=== PATIENT | female | born 1975 | race African-American/Black ===

== ENCOUNTER 2017-09-30 08:22 | Emergency (ER) | payer OTHER, MEDICARE ==
[~2017-09-30] VITALS: Ht 170.2 cm; Wt 70.3 kg
[~2017-09-30 08:22] MED LIST: ACETAMINOPHEN325 M1 PO; ALPRAZOLAM 0.50.5 MG PO; AMITIZA 24 MCG24 MC1 PO; ASPIRIN325 PO; BENTYL; CRANBERRY500 M1 PO; CYMBALTA PO; DESYREL; ERYTHROMYCIN PO; FENTANYL PA50 MCG/HR TP; FUROSEMIDE 20 M20 MG PO; GLUCOPHAGE500 MG PO; HYDROXYCHLOROQ200 M1 PO; KEFLEX500 MG PO; KLOR-CON 1010 MEQ PO; LEVOTHYROXINE PO; METHOTREXATE 22.5 M1 PO; MULTIVITAMINS PO; NEURONTIN800 MG PO; NEXIUM40 MG PO; NORCO 5-325 TA1 EACH; OXYCONTIN PO; OXYCONTIN80 M1 PO; PERCOCET 5-3251 EACH PO; PHENERGAN; PHENERGAN 25 MG25 M1 PO; RESTORIL15 MG PO; SEROQUEL XR200 MG PO; SULFAZINE EC500 MG PO; TIZANIDINE HCL2 M1 PO; TRILEPTAL PO; VANCOMYCIN IVPB; VANCOMYCIN1.5 GM/150 IV
[2017-09-30 08:46] LABS: URINE BILIRUBIN NEGATIVE (Negative); URINE BLOOD NEGATIVE (Negative); URINE CLARITY CLEAR; URINE COLOR YELLOW; URINE GLUCOSE-RANDOM NEGATIVE (Negative); URINE KETONES NEGATIVE (Negative); URINE LEUKOCYTES-REFLEX NEGATIVE (Negative); URINE PROTEIN NEGATIVE (Negative); URINE UROBILINOGEN 0.2 E.U./dl (0.2-1.0)
[2017-09-30 08:51] LABS: URINE NITRITE-REFLEX POSITIVE (Negative)
[2017-09-30 08:54] LABS: CASTS None Seen /LPF (None Seen); CRYSTALS None Seen /LPF (None Seen); SQUAMOUS >10 Many /LPF (0-3)
[2017-09-30 08:55] LABS: BACTERIA-REFLEX 1-9 Few /HPF (None Seen); URINE RBC None Seen /HPF (0-2); URINE WBC-REFLEX 6-15 Few /HPF (0-5)
[2017-09-30] MEDS ORDERED: KEFLEX500 M1 PO (09:52)
[2017-09-30] MEDS ORDERED: PHENAZOPYRIDIN200 M2 PO ×2 (09:52→09:59)
[2017-09-30] MEDS ORDERED: TETRACYCLINE H500 MG PO (09:58)
[2017-09-30 10:47] VITALS: BP 145/82
== END 2017-09-30 10:48 | disposition home or self-care (01) ==
LOC: M.ERS 08:22
PROVIDERS: Emergency Medicine Emergency Medical Services
DX: N39.0 Urinary tract infection, site not specified (principal); E03.9 Hypothyroidism, unspecified; I10 Essential (primary) hypertension; M19.90 Unspecified osteoarthritis, unspecified site; K31.84 Gastroparesis; F39 Unspecified mood [affective] disorder; F17.210 Nicotine dependence, cigarettes, uncomplicated

== ENCOUNTER 2017-12-30 16:16 | Emergency (ER) | payer OTHER, MEDICARE ==
[~2017-12-30] VITALS: Ht 170.2 cm; Wt 71.7 kg
[~2017-12-30 16:16] MED LIST changes: +KEFLEX500 M1 PO; +PHENAZOPYRIDIN200 M2 PO; +TETRACYCLINE H500 MG PO
[2017-12-30] MEDS ORDERED: CYMBALTA30 MG PO (16:34)
[2017-12-30] MEDS ORDERED: XALATAN2.5 ML OPHTHALMIC (16:34)
[2017-12-30] MEDS ORDERED: DEPAKOTE ER500 MG PO (16:34)
[2017-12-30] MEDS ORDERED: KLOR-CON 1010 MEQ PO (16:35)
[2017-12-30] MEDS ORDERED: UNICOMPLEX M TA1 TA1 PO (16:35)
[2017-12-30] MEDS ORDERED: FISH OIL 1,001000 M2 PO (16:36)
[2017-12-30] MEDS ORDERED: CRANBERRY200 MG PO (16:36)
[2017-12-30] MEDS ORDERED: COZAAR 50 MG TA50 M2 PO (16:36)
[2017-12-30] MEDS ORDERED: ZANAFLEX4 MG PO (16:36)
[2017-12-30] MEDS ORDERED: LIDOCAINE 4% K1 EACH TOP (16:37)
[2017-12-30 16:59] LABS: ABSOLUTE EOSINOPHILS 0.2 thou/uL (0.0-0.7); ABSOLUTE LYMPHOCYTES 3.6 thou/uL (0.8-5.3); ABSOLUTE MONOCYTES 0.5 thou/uL (0.0-1.2); ABSOLUTE NEUTROPHILS 2.7 thou/uL (1.6-8.1); BASOPHILS 0.6 %; EOSINOPHILS 2.6 %; HEMATOCRIT 35.5 % (37.0-47.0); HEMOGLOBIN 11.9 gm/dL (12.0-15.0); LYMPHOCYTES 51.3 %; MCH 30.8 pg (26.0-34.0); MCHC 33.4 g/dL (28.0-37.0); MCV 92.3 fL (80.0-100.0); MONOCYTES 6.7 %; MPV 8.3 fl. (7.2-11.1); NUCLEATED RBCS 0 /100WBC; PLATELET COUNT* 185 thou/uL (150-400); POLYS 38.8 %; RBC 3.85 mil/uL (4.20-5.00); RDW-CV 13.9 % (10.5-14.5)
[2017-12-30 17:09] LABS: CALCIUM 8.5 mg/dL (8.5-10.1); CREATININE 0.8 mg/dL (0.6-1.3); POTASSIUM 3.6 mmol/L (3.5-5.1)
[2017-12-30 17:13] LABS: ALBUMIN 3.2 g/dL (3.4-5.0); TOTAL BILIRUBIN 0.1 mg/dL (<0.1-1.0); TOTAL PROTEIN 6.9 g/dL (6.4-8.2)
[2017-12-30] MEDS ORDERED: BENTYL 20 MG TA20 M1 PO (18:07)
[2017-12-30] MEDS ORDERED: CITRATE OF MAG296 M1 PO (18:07)
[2017-12-30] MEDS ORDERED: ZOFRAN4 MG PO (18:07)
[2017-12-30 18:20] VITALS: BP 147/83
== END 2017-12-30 18:21 | disposition home or self-care (01) ==
LOC: M.ERS 16:16
PROVIDERS: Nurse Practitioner Family
DX: K59.00 Constipation, unspecified (principal); I10 Essential (primary) hypertension; M19.90 Unspecified osteoarthritis, unspecified site; E03.9 Hypothyroidism, unspecified; F17.210 Nicotine dependence, cigarettes, uncomplicated

== ENCOUNTER → 2018-02-01 | Outpatient (CLI) | payer OTHER, MEDICARE ==
[~2018-02-01] MED LIST changes: +BENTYL 20 MG TA20 M1 PO; +CITRATE OF MAG296 M1 PO; +COZAAR 50 MG TA50 M2 PO; +CRANBERRY200 MG PO; +CYMBALTA30 MG PO; +DEPAKOTE ER500 MG PO; +FISH OIL 1,001000 M2 PO; +LIDOCAINE 4% K1 EACH TOP; +UNICOMPLEX M TA1 TA1 PO; +XALATAN2.5 ML OPHTHALMIC; +ZANAFLEX4 MG PO; +ZOFRAN4 MG PO
== END ==
LOC: M.NUC 12:44
DX: M54.9 Dorsalgia, unspecified (principal); R10.13 Epigastric pain

== ENCOUNTER 2018-08-24 14:58 | Emergency (ER) | payer OTHER, MEDICARE ==
[~2018-08-24] VITALS: Ht 170.2 cm; Wt 81.2 kg
[2018-08-24] MEDS ORDERED: PHENERGAN 25 MG25 M1 PO (15:09)
[2018-08-24] MEDS ORDERED: OXYCONTIN80 M1 PO (15:11)
[2018-08-24] MEDS ORDERED: SYNTHROID125 MC1 PO (15:13)
[2018-08-24] MEDS ORDERED: PREDNISONE 20 M20 MG PO (15:30)
[2018-08-24] MEDS ORDERED: ANTI-ITCH28 G1 TOP (16:04)
[2018-08-24 16:12] VITALS: BP 118/69
--- NOTE | 2018-08-25 10:22 | EKG ---
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: ANURAG : 1975 Requested By: Casa Vidales Order Number: [id number] MD: Shaquille Sanchez Measurements Intervals [place] Rate: 97 P: 69 MA: 162 QRS: 44 QRSD: 80 T: 28 QT: 329 QTc: 418 Interpretive Statements Sinus rhythm Compared to ECG 03/13/2013 07:22:59 No significant changes Electronically Signed On 08-25-2018 10:22:02 [employer]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
== END 2018-08-24 16:12 | disposition home or self-care (01) ==
LOC: M.ERS 14:58
DX: L50.9 Urticaria, unspecified (principal); E03.9 Hypothyroidism, unspecified; K31.84 Gastroparesis; I10 Essential (primary) hypertension; M19.90 Unspecified osteoarthritis, unspecified site; F17.210 Nicotine dependence, cigarettes, uncomplicated; Z88.8 Allergy status to other drugs, medicaments and biological substances; Z98.890 Other specified postprocedural states